=== PATIENT | female | born 1995 | race Caucasian/White ===

== ENCOUNTER 2025-01-21 19:50 | Emergency (ER) | payer BC ==
[~2025-01-21] VITALS: Ht 162.6 cm; Wt 54.4 kg
[2025-01-21] MEDS: IV NORMAL SALINE 1000 ML BAG IV ONE (21:01)
[2025-01-21] MEDS ORDERED: ONDANSETRON 4 MG/2 ML VIAL ONE (21:03)
[2025-01-21] MEDS ORDERED: DICYCLOMINE HCL LIQ 10 MG/5 ML UDC ONE (21:03)
[2025-01-21] MEDS ORDERED: LOPERAMIDE HCL 2 MG CAPSULE ONE (21:03)
[2025-01-21] MEDS: ONDANSETRON 4 MG/2 ML VIAL IV ONE (21:06)
[2025-01-21 21:10] LABS: PLATELET COUNT (AUTO) 268 K/uL (179-408); RED BLOOD CELL COUNT(AUTO) 4.31 MIL/uL (3.63-4.92); RED CELL DISTRIBUTION WIDTH 13.4 % (12.3-17.7); WHITE BLOOD COUNT (AUTO) 9.6 K/uL (3.8-11.8)
[2025-01-21 21:19] LABS: CREATININE 0.6 mg/dL (0.6-1.3); SODIUM SERUM 135 mmol/L (136-145); UREA NITROGEN, BLOOD 8 mg/dL (7-18)
[2025-01-21 21:30] LABS: PREGNANCY TEST SERUM QUAN < 1 miul/L (0-6)
[2025-01-21 21:33] LABS: ASPARTATE AMINOTRANSFERASE 15 U/L (15-37); TOTAL PROTEIN, SERUM 7.0 g/dL (6.4-8.2)
[2025-01-21] MEDS: DICYCLOMINE HCL LIQ 10 MG/5 ML UDC PO ONE (21:43)
[2025-01-21] MEDS: LOPERAMIDE HCL 2 MG CAPSULE PO ONE (21:43)
[2025-01-21] MEDS ORDERED: DICY20TA13 PO (22:03)
[2025-01-21] MEDS: IV LACTATED RINGERS SOLUTION 1,000 ML IV ONE (22:06)
[2025-01-21 22:26] VITALS: BP 108/68
[2025-01-21 23:11] VITALS: BP 108/68; TEMP 98; O2SAT 100
== END 2025-01-21 22:40 | disposition home or self-care (01) ==
LOC: ER 19:50
DX: R10.84 Generalized abdominal pain (principal); R19.7 Diarrhea, unspecified; R11.2 Nausea with vomiting, unspecified; R10.20 Pelvic and perineal pain unspecified side
CPT/HCPCS: 99283; 96374; 96361; 80076; 80048; 83690; 85025; 84702; 36415; J2405; J7120; J7040; A4606; A4663